=== PATIENT | female | born 1980 | race Caucasian/White ===

== ENCOUNTER 2020-08-13 09:06 | Outpatient (CLI) | payer BC, SELFPAY | END 2020-08-13 09:07 | disposition home or self-care (01) | LOC: ANHCOVIDVC 09:06 | PROVIDERS: PCP Physician Assistant | DX: Z23 Encounter for immunization (principal) | CPT/HCPCS: 0001A; 91300 ==

== ENCOUNTER 2020-09-03 09:05 | Outpatient (CLI) | payer BC, SELFPAY | END 2020-09-03 09:06 | disposition home or self-care (01) | LOC: ANHCOVIDVC 09:05 | PROVIDERS: PCP Physician Assistant | DX: Z23 Encounter for immunization (principal) | CPT/HCPCS: 0002A; 91300 ==

== ENCOUNTER → 2021-02-11 10:55 | Outpatient (CLI) | payer BC, SELFPAY ==
--- NOTE | ~2021-02-11 | XR_ITS ---
EXAMINATION: XR sacroiliac joints min 3V EXAM DATE: 02/11/2021 12:00 INDICATION: Polyarthralgia. Low back pain. TECHNIQUE: Sacroiliac frontal, bilateral oblique projections. There is no prior study for compariso n. FINDINGS: There is mild symmetric bilateral sacroiliac and hip primary osteoarthritis. There are no a cute fractures or dislocations identified. There is no subcutaneous gas. Pelvic calcifications whic h are most likely phleboliths. There is IUD projecting over the central aspect of the pelvis. Sacrum , sacroiliac joints, sacral arcuate lines are intact. IMPRESSION: Mild bilateral hip, sacroiliac osteoarthritis. Reviewed, dictated and finalized at location A.
--- NOTE | ~2021-02-11 | XR_ITS ---
EXAMINATION: XR hand BI arthritis min 3V EXAM DATE: 02/11/2021 12:00 INDICATION: Polyarthralgia. Bilateral hand joint pain, RT lateral wrist pain. x years. getting worse. occasional pain across low back, mostly on RT side x a few years. no inj. no surg. no fx TECHNIQUE: Right hand frontal, lateral and oblique projections obtained and reviewed. Left hand fron vincent, lateral and oblique projections obtained and reviewed. Catchers projection of both hands. There is no prior study for comparison. FINDINGS: Right hand: Joint spaces are uniform. There are no bony erosions identified. There are no acute fract ures identified. Left hand: Joint spaces are uniform. There are no bony erosions identified. There are no acute fractu res identified. IMPRESSION: Unremarkable hand exam. Reviewed, dictated and finalized at location A. IMPRESSION: Unremarkable hand exam.
== END ==
PROVIDERS: PCP Physician Assistant; Visit Provider Internal Medicine
DX: M17.0 Bilateral primary osteoarthritis of knee (principal); M47.818 Spondylosis without myelopathy or radiculopathy, sacral and sacrococcygeal region; M25.542 Pain in joints of left hand; M25.541 Pain in joints of right hand
CPT/HCPCS: 72202; 73130